=== PATIENT | female | born 1955 | race African-American/Black ===

== ENCOUNTER 2022-05-02 10:37 | Emergency (ER) | payer BC, MEDICARE, OTHER ==
[~2022-05-02] VITALS: Ht 165.1 cm; Wt 78.0 kg
[2022-05-02 10:58] VITALS: BP 155/83
[2022-05-02] MEDS ORDERED: KETOROLAC 60MG/2ML VIAL IM ONE (11:15)
[2022-05-02] MEDS ORDERED: LIDO700A30 TP (12:57)
[2022-05-02] MEDS ORDERED: IBUP-2029 MT (12:57)
== END 2022-05-02 13:20 | disposition home or self-care (01) ==
LOC: ER 10:37
DX: S50.12XA Contusion of left forearm, initial encounter (principal); G89.29 Other chronic pain; M54.50 Low back pain, unspecified; Z98.890 Other specified postprocedural states; V49.9XXA Car occupant (driver) (passenger) injured in unspecified traffic accident, initial encounter; W22.10XA Striking against or struck by unspecified automobile airbag, initial encounter; Y93.89 Activity, other specified; Y92.89 Other specified places as the place of occurrence of the external cause; Y99.8 Other external cause status
CPT/HCPCS: 71045; 72070; 72100; 73090; 73590; 96372; 99284; J1885